=== PATIENT | female | born 1955 | race Caucasian/White ===

== ENCOUNTER → 2020-06-27 | Outpatient (CLI) | payer MEDICARE, OTHER | LOC: M.WC 11:46 | PROVIDERS: ATTEND Family Medicine | DX: I87.312 Chronic venous hypertension (idiopathic) with ulcer of left lower extremity (principal); L97.822 Non-pressure chronic ulcer of other part of left lower leg with fat layer exposed; J44.9 Chronic obstructive pulmonary disease, unspecified; M19.90 Unspecified osteoarthritis, unspecified site; F41.9 Anxiety disorder, unspecified; Z87.891 Personal history of nicotine dependence; Z98.49 Cataract extraction status, unspecified eye ==

== ENCOUNTER → 2020-06-29 | Outpatient (CLI) | payer MEDICARE, OTHER | LOC: M.WC 04:29 | PROVIDERS: ATTEND Family Medicine | DX: I87.312 Chronic venous hypertension (idiopathic) with ulcer of left lower extremity (principal); L97.822 Non-pressure chronic ulcer of other part of left lower leg with fat layer exposed; H26.9 Unspecified cataract; J44.9 Chronic obstructive pulmonary disease, unspecified; M19.90 Unspecified osteoarthritis, unspecified site; F41.9 Anxiety disorder, unspecified; Z87.891 Personal history of nicotine dependence ==

== ENCOUNTER → 2020-07-06 | Outpatient (CLI) | payer MEDICARE, OTHER | LOC: M.WC 00:41 | PROVIDERS: ATTEND Family Medicine | DX: I87.312 Chronic venous hypertension (idiopathic) with ulcer of left lower extremity (principal); L97.822 Non-pressure chronic ulcer of other part of left lower leg with fat layer exposed; J44.9 Chronic obstructive pulmonary disease, unspecified; M19.90 Unspecified osteoarthritis, unspecified site; H26.9 Unspecified cataract; F41.9 Anxiety disorder, unspecified; Z87.891 Personal history of nicotine dependence ==

== ENCOUNTER → 2020-07-13 | Outpatient (CLI) | payer MEDICARE, OTHER | LOC: M.WC 04:55 | PROVIDERS: ATTEND Family Medicine | DX: I87.312 Chronic venous hypertension (idiopathic) with ulcer of left lower extremity (principal); L97.821 Non-pressure chronic ulcer of other part of left lower leg limited to breakdown of skin; J44.9 Chronic obstructive pulmonary disease, unspecified; H26.9 Unspecified cataract; M19.90 Unspecified osteoarthritis, unspecified site; F41.9 Anxiety disorder, unspecified; Z87.891 Personal history of nicotine dependence ==

== ENCOUNTER → 2020-07-20 | Outpatient (CLI) | payer MEDICARE, OTHER | LOC: M.WC 04:58 | PROVIDERS: ATTEND Family Medicine | DX: I87.312 Chronic venous hypertension (idiopathic) with ulcer of left lower extremity (principal); L97.822 Non-pressure chronic ulcer of other part of left lower leg with fat layer exposed; H26.9 Unspecified cataract; J44.9 Chronic obstructive pulmonary disease, unspecified; M19.90 Unspecified osteoarthritis, unspecified site; F41.9 Anxiety disorder, unspecified; Z87.891 Personal history of nicotine dependence ==

== ENCOUNTER → 2020-07-27 | Outpatient (CLI) | payer MEDICARE, OTHER | LOC: M.WC 04:55 | PROVIDERS: ATTEND Family Medicine | DX: I87.312 Chronic venous hypertension (idiopathic) with ulcer of left lower extremity (principal); L97.822 Non-pressure chronic ulcer of other part of left lower leg with fat layer exposed; H26.9 Unspecified cataract; J44.9 Chronic obstructive pulmonary disease, unspecified; M19.90 Unspecified osteoarthritis, unspecified site; F41.9 Anxiety disorder, unspecified; Z87.891 Personal history of nicotine dependence ==

== ENCOUNTER → 2020-08-03 | Outpatient (CLI) | payer MEDICARE, OTHER | LOC: M.WC 05:08 | PROVIDERS: ATTEND Family Medicine | DX: I87.312 Chronic venous hypertension (idiopathic) with ulcer of left lower extremity (principal); L97.822 Non-pressure chronic ulcer of other part of left lower leg with fat layer exposed; H26.9 Unspecified cataract; J44.9 Chronic obstructive pulmonary disease, unspecified; M19.90 Unspecified osteoarthritis, unspecified site; F41.9 Anxiety disorder, unspecified; Z87.891 Personal history of nicotine dependence ==

== ENCOUNTER → 2020-08-10 | Outpatient (CLI) | payer MEDICARE, OTHER | LOC: M.WC 08:56 | PROVIDERS: ATTEND Family Medicine | DX: I87.312 Chronic venous hypertension (idiopathic) with ulcer of left lower extremity (principal); L97.822 Non-pressure chronic ulcer of other part of left lower leg with fat layer exposed; J44.9 Chronic obstructive pulmonary disease, unspecified; M19.90 Unspecified osteoarthritis, unspecified site; H26.9 Unspecified cataract; F41.9 Anxiety disorder, unspecified; Z87.891 Personal history of nicotine dependence ==

== ENCOUNTER → 2020-08-17 | Outpatient (CLI) | payer MEDICARE, OTHER | LOC: M.WC 08:01 | PROVIDERS: ATTEND Family Medicine | DX: I87.312 Chronic venous hypertension (idiopathic) with ulcer of left lower extremity (principal); L97.822 Non-pressure chronic ulcer of other part of left lower leg with fat layer exposed; J44.9 Chronic obstructive pulmonary disease, unspecified; M19.90 Unspecified osteoarthritis, unspecified site; H26.9 Unspecified cataract; F41.9 Anxiety disorder, unspecified; Z87.891 Personal history of nicotine dependence ==

== ENCOUNTER → 2020-10-12 | Outpatient (CLI) | payer MEDICARE, OTHER | LOC: M.WC 10:00 | PROVIDERS: ATTEND Family Medicine | DX: I87.311 Chronic venous hypertension (idiopathic) with ulcer of right lower extremity (principal); L97.812 Non-pressure chronic ulcer of other part of right lower leg with fat layer exposed; H26.9 Unspecified cataract; J44.9 Chronic obstructive pulmonary disease, unspecified; M19.90 Unspecified osteoarthritis, unspecified site; F41.9 Anxiety disorder, unspecified; Z87.891 Personal history of nicotine dependence; Z98.49 Cataract extraction status, unspecified eye ==

== ENCOUNTER → 2020-10-26 | Outpatient (CLI) | payer MEDICARE, OTHER | LOC: M.WC 09:49 | PROVIDERS: ATTEND Family Medicine | DX: I87.311 Chronic venous hypertension (idiopathic) with ulcer of right lower extremity (principal); L97.212 Non-pressure chronic ulcer of right calf with fat layer exposed; S81.851A Open bite, right lower leg, initial encounter; B96.89 Other specified bacterial agents as the cause of diseases classified elsewhere; H26.9 Unspecified cataract; M19.90 Unspecified osteoarthritis, unspecified site; J44.9 Chronic obstructive pulmonary disease, unspecified; F41.9 Anxiety disorder, unspecified; Z87.891 Personal history of nicotine dependence; W64.XXXA Exposure to other animate mechanical forces, initial encounter; Y93.89 Activity, other specified; Y92.89 Other specified places as the place of occurrence of the external cause; Y99.8 Other external cause status ==

== ENCOUNTER → 2020-11-02 | Outpatient (CLI) | payer MEDICARE, OTHER | LOC: M.WC 10:00 | PROVIDERS: ATTEND Family Medicine | DX: I87.311 Chronic venous hypertension (idiopathic) with ulcer of right lower extremity (principal); L97.212 Non-pressure chronic ulcer of right calf with fat layer exposed; S81.851D Open bite, right lower leg, subsequent encounter; B96.89 Other specified bacterial agents as the cause of diseases classified elsewhere; H26.9 Unspecified cataract; M19.90 Unspecified osteoarthritis, unspecified site; J44.9 Chronic obstructive pulmonary disease, unspecified; F41.9 Anxiety disorder, unspecified; Z87.891 Personal history of nicotine dependence; W55.01XD Bitten by cat, subsequent encounter ==

== ENCOUNTER → 2020-11-09 | Outpatient (CLI) | payer MEDICARE, OTHER | LOC: M.WC 10:00 | PROVIDERS: ATTEND Family Medicine | DX: I87.311 Chronic venous hypertension (idiopathic) with ulcer of right lower extremity (principal); L97.212 Non-pressure chronic ulcer of right calf with fat layer exposed; S81.851D Open bite, right lower leg, subsequent encounter; B96.89 Other specified bacterial agents as the cause of diseases classified elsewhere; H26.9 Unspecified cataract; M19.90 Unspecified osteoarthritis, unspecified site; J44.9 Chronic obstructive pulmonary disease, unspecified; F41.9 Anxiety disorder, unspecified; Z87.891 Personal history of nicotine dependence; W55.01XD Bitten by cat, subsequent encounter ==

== ENCOUNTER → 2020-11-16 | Outpatient (CLI) | payer MEDICARE, OTHER | LOC: M.WC 10:00 | PROVIDERS: ATTEND Family Medicine | DX: I87.311 Chronic venous hypertension (idiopathic) with ulcer of right lower extremity (principal); L97.212 Non-pressure chronic ulcer of right calf with fat layer exposed; B96.89 Other specified bacterial agents as the cause of diseases classified elsewhere; H26.9 Unspecified cataract; J44.9 Chronic obstructive pulmonary disease, unspecified; M19.90 Unspecified osteoarthritis, unspecified site; F41.9 Anxiety disorder, unspecified; Z87.891 Personal history of nicotine dependence ==

== ENCOUNTER → 2021-06-19 | Outpatient (CLI) | payer MEDICARE, OTHER | LOC: M.WC 12:58 | PROVIDERS: ATTEND Emergency Medicine Undersea and Hyperbaric Medicine | DX: L97.822 Non-pressure chronic ulcer of other part of left lower leg with fat layer exposed (principal); L97.812 Non-pressure chronic ulcer of other part of right lower leg with fat layer exposed; S51.001A Unspecified open wound of right elbow, initial encounter; S51.002A Unspecified open wound of left elbow, initial encounter; S81.002A Unspecified open wound, left knee, initial encounter; S81.001A Unspecified open wound, right knee, initial encounter; J44.9 Chronic obstructive pulmonary disease, unspecified; M19.90 Unspecified osteoarthritis, unspecified site; F41.9 Anxiety disorder, unspecified; Z87.891 Personal history of nicotine dependence; Z98.49 Cataract extraction status, unspecified eye; X58.XXXA Exposure to other specified factors, initial encounter; Y93.89 Activity, other specified; Y92.89 Other specified places as the place of occurrence of the external cause; Y99.8 Other external cause status ==

== ENCOUNTER → 2021-06-22 | Outpatient (CLI) | payer MEDICARE, OTHER | LOC: M.WC 09:48 | PROVIDERS: ATTEND Family Medicine | DX: L97.822 Non-pressure chronic ulcer of other part of left lower leg with fat layer exposed (principal); L97.812 Non-pressure chronic ulcer of other part of right lower leg with fat layer exposed; S51.001D Unspecified open wound of right elbow, subsequent encounter; S51.002D Unspecified open wound of left elbow, subsequent encounter; S81.002D Unspecified open wound, left knee, subsequent encounter; S81.001D Unspecified open wound, right knee, subsequent encounter; J44.9 Chronic obstructive pulmonary disease, unspecified; M19.90 Unspecified osteoarthritis, unspecified site; H26.9 Unspecified cataract; I10 Essential (primary) hypertension; F41.9 Anxiety disorder, unspecified; Z87.891 Personal history of nicotine dependence; X58.XXXD Exposure to other specified factors, subsequent encounter ==

== ENCOUNTER → 2021-06-26 | Outpatient (CLI) | payer MEDICARE, OTHER | LOC: M.WC 09:11 | PROVIDERS: ATTEND Family Medicine | DX: L97.822 Non-pressure chronic ulcer of other part of left lower leg with fat layer exposed (principal); L97.812 Non-pressure chronic ulcer of other part of right lower leg with fat layer exposed; S51.001D Unspecified open wound of right elbow, subsequent encounter; S51.002D Unspecified open wound of left elbow, subsequent encounter; S81.002D Unspecified open wound, left knee, subsequent encounter; S81.001D Unspecified open wound, right knee, subsequent encounter; J44.9 Chronic obstructive pulmonary disease, unspecified; M19.90 Unspecified osteoarthritis, unspecified site; H26.9 Unspecified cataract; I10 Essential (primary) hypertension; F41.9 Anxiety disorder, unspecified; Z87.891 Personal history of nicotine dependence; X58.XXXD Exposure to other specified factors, subsequent encounter ==

== ENCOUNTER → 2021-07-04 | Outpatient (CLI) | payer MEDICARE, OTHER | LOC: M.WC 08:35 | PROVIDERS: ATTEND Surgery | DX: L97.822 Non-pressure chronic ulcer of other part of left lower leg with fat layer exposed (principal); L97.812 Non-pressure chronic ulcer of other part of right lower leg with fat layer exposed; S51.001D Unspecified open wound of right elbow, subsequent encounter; S51.002D Unspecified open wound of left elbow, subsequent encounter; S80.11XA Contusion of right lower leg, initial encounter; S81.002D Unspecified open wound, left knee, subsequent encounter; S81.001D Unspecified open wound, right knee, subsequent encounter; J44.9 Chronic obstructive pulmonary disease, unspecified; M19.90 Unspecified osteoarthritis, unspecified site; H26.9 Unspecified cataract; I10 Essential (primary) hypertension; F41.9 Anxiety disorder, unspecified; Z87.891 Personal history of nicotine dependence; X58.XXXD Exposure to other specified factors, subsequent encounter; X58.XXXA Exposure to other specified factors, initial encounter; Y93.89 Activity, other specified; Y92.89 Other specified places as the place of occurrence of the external cause; Y99.8 Other external cause status ==

== ENCOUNTER → 2021-07-11 | Outpatient (CLI) | payer MEDICARE, OTHER | LOC: M.WC 09:48 | PROVIDERS: ATTEND Surgery | DX: L97.822 Non-pressure chronic ulcer of other part of left lower leg with fat layer exposed (principal); L97.812 Non-pressure chronic ulcer of other part of right lower leg with fat layer exposed; S51.001D Unspecified open wound of right elbow, subsequent encounter; S51.002D Unspecified open wound of left elbow, subsequent encounter; S80.11XD Contusion of right lower leg, subsequent encounter; S81.002D Unspecified open wound, left knee, subsequent encounter; S81.001D Unspecified open wound, right knee, subsequent encounter; J44.9 Chronic obstructive pulmonary disease, unspecified; M19.90 Unspecified osteoarthritis, unspecified site; H26.9 Unspecified cataract; I10 Essential (primary) hypertension; F41.9 Anxiety disorder, unspecified; Z87.891 Personal history of nicotine dependence; X58.XXXD Exposure to other specified factors, subsequent encounter ==

== ENCOUNTER → 2021-07-17 | Outpatient (CLI) | payer MEDICARE, OTHER | LOC: M.WC 09:01 | PROVIDERS: ATTEND Emergency Medicine Undersea and Hyperbaric Medicine | DX: L97.822 Non-pressure chronic ulcer of other part of left lower leg with fat layer exposed (principal); L97.812 Non-pressure chronic ulcer of other part of right lower leg with fat layer exposed; S51.001D Unspecified open wound of right elbow, subsequent encounter; S51.002D Unspecified open wound of left elbow, subsequent encounter; S81.002D Unspecified open wound, left knee, subsequent encounter; S81.801D Unspecified open wound, right lower leg, subsequent encounter; J44.9 Chronic obstructive pulmonary disease, unspecified; M19.90 Unspecified osteoarthritis, unspecified site; H26.9 Unspecified cataract; I10 Essential (primary) hypertension; F41.9 Anxiety disorder, unspecified; Z87.891 Personal history of nicotine dependence; X58.XXXD Exposure to other specified factors, subsequent encounter ==

== ENCOUNTER → 2021-07-24 | Outpatient (CLI) | payer MEDICARE, OTHER | LOC: M.WC 09:26 | PROVIDERS: ATTEND Emergency Medicine Undersea and Hyperbaric Medicine | DX: L97.812 Non-pressure chronic ulcer of other part of right lower leg with fat layer exposed (principal); H26.9 Unspecified cataract; I10 Essential (primary) hypertension; J44.9 Chronic obstructive pulmonary disease, unspecified; M19.90 Unspecified osteoarthritis, unspecified site; F41.9 Anxiety disorder, unspecified; Z87.891 Personal history of nicotine dependence ==

== ENCOUNTER → 2021-08-01 | Outpatient (CLI) | payer MEDICARE, OTHER | LOC: M.WC 08:33 | PROVIDERS: ATTEND Surgery | DX: L97.812 Non-pressure chronic ulcer of other part of right lower leg with fat layer exposed (principal); H26.9 Unspecified cataract; I10 Essential (primary) hypertension; J44.9 Chronic obstructive pulmonary disease, unspecified; M19.90 Unspecified osteoarthritis, unspecified site; F41.9 Anxiety disorder, unspecified; Z87.891 Personal history of nicotine dependence ==